=== PATIENT | female | born 1990 | race Caucasian/White ===

== ENCOUNTER 2018-07-25 12:18 | Emergency (ER) | payer OTHER ==
[2018-07-25 12:32] VITALS: BP 126/63
[2018-07-25] MEDS ORDERED: IBUPROFEN PO ONE (12:43)
[2018-07-25] MEDS ORDERED: MORPHINE IV ONE (12:43)
[2018-07-25] MEDS ORDERED: ZOFRAN IV ONE (12:43)
--- NOTE | 2018-07-25 12:47 | Emergency Department Report ---
ED Female HPI - General Chief complaint: Urogenital-Female Stated complaint: LEFT SIDE PAIN/FEVER Time Seen by Provider: 07/25/18 12:38 Source: patient Mode of arrival: Ambulatory Limitations: No Limitations - History of Present Illness Initial comments: Barb is a 27-year-old female who presents with left flank pain for one week. Positive fever positive chills, malaise. Positive bladder pain. MD Complaint: other (left flank pain, bladder pain) -: Gradual, week(s) (1) Severity: moderate Quality: cramping, burning Consistency: constant Improves with: none Worsens with: none Are you Now?: No - Related Data Home Medications Medication Instructions Recorded Confirmed Last Taken Pnv Plus Multivit Tab 1 tab PO DAILY 03/20/15 05/21/15 05/20/15 Previous Rx's Medication Instructions Recorded Last Taken Type Ibuprofen [Motrin 800 MG tab] 800 mg PO Q8HR PRN #30 tablet 05/22/15 Unknown Rx oxyCODONE /ACETAMINOPHEN [Percocet 2 tab PO Q4HR PRN #30 tablet 05/22/15 Unknown Rx 5/325] Acetaminophen [Tylenol Arthritis] 650 mg PO Q6HR PRN #30 tablet.er 02/11/18 Unknown Rx Doxylamine Succinate/Vit B6 1 each PO QHS PRN #30 tablet. 02/11/18 Unknown Rx [Shravan Shrestha 10-10 mg Tablet] Nitrofurantoin [place]/M-Cryst 100 mg PO Q12HR #14 capsule 02/11/18 Unknown Rx [Macrobid CAP] Vit Calc,Iron,Folic 1 each PO QDAY #30 tablet 02/11/18 Unknown Rx [ Vitamins] Cephalexin [Keflex] 500 mg PO QID 10 Days #40 capsule 07/25/18 Unknown Rx Promethazine [Phenergan TAB] 25 mg PO Q6HR PRN #15 tab 07/25/18 Unknown Rx Allergies Allergy/AdvReac Type Severity Reaction Status Date / Time No Known Allergies Allergy Verified 03/20/15 13:30 ED Review of Systems ROS: Stated complaint: LEFT SIDE PAIN/FEVER Other details as noted in HPI Constitutional: denies: chills, fever Eyes: denies: eye pain, eye discharge, vision change ENT: denies: ear pain, throat pain Respiratory: denies: cough, shortness of breath, wheezing Cardiovascular: denies: chest pain, palpitations Endocrine: no symptoms reported Gastrointestinal: nausea, vomiting. denies: abdominal pain, diarrhea Genitourinary: denies: urgency, dysuria, discharge Musculoskeletal: denies: back pain, joint swelling, arthralgia Skin: denies: rash, lesions Neurological: headache. denies: weakness, paresthesias Psychiatric: denies: anxiety, depression Hematological/Lymphatic: denies: easy bleeding, easy bruising ED Past Medical Hx - Past Medical History Previous Medical History?: No Hx Hypertension: No Hx Congestive Heart Failure: No Hx Diabetes: No Hx Deep Vein Thrombosis: No Hx Renal Disease: No Hx Sickle Cell Disease: No Hx Seizures: No Hx Asthma: No Hx COPD: No Hx HIV: No - Surgical History Past Surgical History?: Yes Additional Surgical History: - Social History Smoking Status: Never Smoker Substance Use Type: None - Medications Home Medications: Home Medications Medication Instructions Recorded Confirmed Last Taken Type Pnv Plus Multivit Tab 1 tab PO DAILY 03/20/15 05/21/15 05/20/15 History Ibuprofen [Motrin 800 MG tab] 800 mg PO Q8HR PRN #30 tablet 05/22/15 Unknown Rx oxyCODONE /ACETAMINOPHEN [Percocet 2 tab PO Q4HR PRN #30 tablet 05/22/15 Unknown Rx 5/325] Acetaminophen [Tylenol Arthritis] 650 mg PO Q6HR PRN #30 tablet.er 02/11/18 Unknown Rx Doxylamine Succinate/Vit B6 1 each PO QHS PRN #30 tablet. 02/11/18 Unknown Rx [Dicallyosn Shrestha 10-10 mg Tablet] Nitrofurantoin [place]/M-Cryst 100 mg PO Q12HR #14 capsule 02/11/18 Unknown Rx [Macrobid CAP] Vit Calc,Iron,Folic 1 each PO QDAY #30 tablet 02/11/18 Unknown Rx [ Vitamins] Cephalexin [Keflex] 500 mg PO QID 10 Days #40 capsule 07/25/18 Unknown Rx Promethazine [Phenergan TAB] 25 mg PO Q6HR PRN #15 tab 07/25/18 Unknown Rx ED Physical Exam - General Limitations: No Limitations General appearance: alert, in no apparent distress - Head Head exam: Present: atraumatic, normocephalic - Eye Eye exam: Present: normal appearance - ENT ENT exam: Present: mucous membranes moist - Neck Neck exam: Present: normal inspection, full ROM. Absent: tenderness, meningismus - Respiratory Respiratory exam: Present: normal lung sounds bilaterally. Absent: respiratory distress, wheezes, rales, rhonchi - Cardiovascular Cardiovascular Exam: Present: normal rhythm, tachycardia, normal heart sounds. Absent: systolic murmur, diastolic murmur, rubs, gallop - GI/Abdominal GI/Abdominal exam: Present: soft, normal bowel sounds. Absent: distended, tenderness, guarding, rebound - Extremities Exam Extremities exam: Present: normal inspection - Back Exam Back exam: Present: CVA tenderness (L). Absent: muscle spasm, paraspinal tenderness, vertebral tenderness - Neurological Exam Neurological exam: Present: alert, oriented X3 - Psychiatric Psychiatric exam: Present: normal affect, normal mood - Skin Skin exam: Present: warm, dry, intact, normal color. Absent: rash ED Course Vital Signs 07/25/18 12:30 Temperature 100.3 F H Pulse Rate 129 H Respiratory 20 Rate Blood Pressure 126/63 O2 Sat by Pulse 100 Oximetry ED Medical Decision Making - Medical Decision Making Acute pyelonephritis prescribed promethazine and cephalexin given first dose of ceftriaxone here in the ED Critical care attestation.: If time is entered above; I have spent that time in minutes in the direct care of this critically ill patient, excluding procedure time. ED Disposition Clinical Impression: Acute pyelonephritis Disposition: DC-01 TO HOME OR SELFCARE Is pt being admited?: No Does the pt Need Aspirin: No Condition: Stable Instructions: Acute Pyelonephritis (ED) Prescriptions: Cephalexin [Keflex] 500 mg PO QID 10 Days #40 capsule Promethazine [Phenergan TAB] 25 mg PO Q6HR PRN #15 tab PRN Reason: Nausea Print Language: POLISH
[2018-07-25] MEDS ORDERED: ROCEPHIN/NS 2 GM/100 ML 2 GM/100 ML BAG IV ONE (13:00)
[2018-07-25 13:51] LABS: Bilirubin,Urine NEG (Negative); Blood,Urine MOD (Negative); Color,Urine Yellow (Yellow); Mucus,Urine 1+ /HPF; Urobilinogen,Urine < 2.0 mg/dL (<2.0)
[2018-07-25 13:56] LABS: WBC,Urine > 182.0 /HPF (0.0-6.0)
[2018-07-25 13:57] LABS: HCG Qualitative,Urine Negative (Negative)
== END 2018-07-25 14:18 | disposition home or self-care (01) ==
LOC: ED 12:18
DX: N10 Acute pyelonephritis (principal); Z79.899 Other long term (current) drug therapy
CPT/HCPCS: 81001; 81025; 96365; 96375; 99283; J0696; J2270; J2405

== ENCOUNTER 2018-11-19 20:46 | Emergency (ER) | payer SELFPAY ==
[2018-11-19] MEDS ORDERED: NACL 0.9% 1000 ML 2,000 ML IV ONE (21:22)
[2018-11-19] MEDS ORDERED: NACL 0.9% 1000 ML 1,000 ML IV ONE ×3 (21:22→23:57)
[2018-11-19] MEDS ORDERED: TYLENOL PO STA (21:23)
[2018-11-19 21:58] LABS: BUN/Creatinine Ratio 22; Blood Urea Nitrogen 11 mg/dL (7-17); Calcium 9.3 mg/dL (8.4-10.2); Hemolysis Index 1
[2018-11-19] MEDS ORDERED: TORADOL IV ONE (22:16)
--- NOTE | 2018-11-19 22:17 | Emergency Department Report ---
ED General Adult HPI - General Chief complaint: Fever Stated complaint: FEVER, BODY PAIN, THROAT PAIN Time Seen by Provider: 11/19/18 21:27 Source: patient, RN notes reviewed Mode of arrival: Ambulatory Limitations: No Limitations - History of Present Illness Initial comments: This is a pleasant 28-year-old female. The patient is not known to this prov ider previously. The patient presents to the ER with a complaint of one day sublingual and submental pain and swelling, fever, chills, myalgias, malaise and fatigue. She denies throat pain. Symptoms intermittent over the past 24 hours, and decrease in the emergency room with fluids and supportive care. The patient denies severe headache, posterior neck pain, ocular pain, nasal discharge, chest pain, abdominal pain, shortness of breath, urinary symptoms. Positive myalgias and chills. -: Gradual, days(s) (1) Location: neck Radiation: non-radiation Severity scale (0 -10): 9 Quality: aching Consistency: other Improves with: other Worsens with: other - Related Data Home Medications Medication Instructions Recorded Confirmed Last Taken Pnv Plus Multivit Tab 1 tab PO DAILY 03/20/15 05/21/15 05/20/15 Previous Rx's Medication Instructions Recorded Last Taken Type Ibuprofen [Motrin 800 MG tab] 800 mg PO Q8HR PRN #30 tablet 05/22/15 Unknown Rx oxyCODONE /ACETAMINOPHEN [Percocet 2 tab PO Q4HR PRN #30 tablet 05/22/15 Unknown Rx 5/325] Acetaminophen [Tylenol Arthritis] 650 mg PO Q6HR PRN #30 tablet.er 02/11/18 Unknown Rx Doxylamine Succinate/Vit B6 1 each PO QHS PRN #30 tablet. 02/11/18 Unknown Rx [Shravan Shrestha 10-10 mg Tablet] Nitrofurantoin [place]/M-Cryst 100 mg PO Q12HR #14 capsule 02/11/18 Unknown Rx [Macrobid CAP] Vit Calc,Iron,Folic 1 each PO QDAY #30 tablet 02/11/18 Unknown Rx [ Vitamins] Cephalexin [Keflex] 500 mg PO QID 10 Days #40 capsule 07/25/18 Unknown Rx Promethazine [Phenergan] 25 mg PO Q6HR PRN #15 tab 07/25/18 Unknown Rx Acetaminophen [Non-Aspirin Extra 500 mg PO BID #20 tablet 11/19/18 Unknown Rx Strength] Ibuprofen [Motrin] 600 mg PO Q8H PRN #30 tablet 11/19/18 Unknown Rx Ondansetron [Zofran Odt] 4 mg PO Q8HR PRN #20 tab.rapdis 11/19/18 Unknown Rx Amoxicillin [Trimox CAP] 500 mg PO BID #20 capsule 11/20/18 Unknown Rx Allergies Allergy/AdvReac Type Severity Reaction Status Date / Time No Known Allergies Allergy Verified 03/20/15 13:30 ED Review of Systems ROS: Stated complaint: FEVER, BODY PAIN, THROAT PAIN Other details as noted in HPI Constitutional: chills, fever, malaise, weakness Eyes: denies: eye discharge ENT: throat pain, other (neck pain). denies: dental pain, hearing loss, epistaxis, congestion Respiratory: denies: wheezing Cardiovascular: denies: syncope Gastrointestinal: denies: nausea, vomiting Genitourinary: denies: urgency Musculoskeletal: arthralgia, myalgia Skin: denies: lesions Neurological: weakness ED Past Medical Hx - Past Medical History Hx Hypertension: No Hx Congestive Heart Failure: No Hx Diabetes: No Hx Deep Vein Thrombosis: No Hx Renal Disease: No Hx Sickle Cell Disease: No Hx Seizures: No Hx Asthma: No Hx COPD: No Hx HIV: No - Surgical History Additional Surgical History: - Social History Smoking Status: Never Smoker - Medications Home Medications: Home Medications Medication Instructions Recorded Confirmed Last Taken Type Pnv Plus Multivit Tab 1 tab PO DAILY 03/20/15 05/21/15 05/20/15 History Ibuprofen [Motrin 800 MG tab] 800 mg PO Q8HR PRN #30 tablet 05/22/15 Unknown Rx oxyCODONE /ACETAMINOPHEN [Percocet 2 tab PO Q4HR PRN #30 tablet 05/22/15 Unknown Rx 5/325] Acetaminophen [Tylenol Arthritis] 650 mg PO Q6HR PRN #30 tablet.er 02/11/18 Unknown Rx Doxylamine Succinate/Vit B6 1 each PO QHS PRN #30 tablet. 02/11/18 Unknown Rx [Diclegilucia Shrestha 10-10 mg Tablet] Nitrofurantoin [place]/M-Cryst 100 mg PO Q12HR #14 capsule 02/11/18 Unknown Rx [Macrobid CAP] Vit Calc,Iron,Folic 1 each PO QDAY #30 tablet 02/11/18 Unknown Rx [ Vitamins] Cephalexin [Keflex] 500 mg PO QID 10 Days #40 capsule 07/25/18 Unknown Rx Promethazine [Phenergan] 25 mg PO Q6HR PRN #15 tab 07/25/18 Unknown Rx Acetaminophen [Non-Aspirin Extra 500 mg PO BID #20 tablet 11/19/18 Unknown Rx Strength] Ibuprofen [Motrin] 600 mg PO Q8H PRN #30 tablet 11/19/18 Unknown Rx Ondansetron [Zofran Odt] 4 mg PO Q8HR PRN #20 tab.rapdis 11/19/18 Unknown Rx Amoxicillin [Trimox CAP] 500 mg PO BID #20 capsule 11/20/18 Unknown Rx ED Physical Exam - General Limitations: No Limitations General appearance: alert, anxious - Head Head exam: Present: atraumatic, normocephalic - Eye Eye exam: Present: normal appearance, EOMI. Absent: nystagmus - ENT ENT exam: Present: normal orophraynx (erythematous oropharynx. No pus or streaking. No discharge. No elevation of the base of the tongue.), mucous membranes moist, TM's normal bilaterally, normal external ear exam - Neck Neck exam: Present: normal inspection, full ROM, lymphadenopathy, other (there is submental and submandibular adenopathy and swelling. There is submental induration. There is no redness, pus or streaking). Absent: tenderness, meningismus - Respiratory Respiratory exam: Present: normal lung sounds bilaterally. Absent: respiratory distress, wheezes, rales, rhonchi, stridor, chest wall tenderness - Cardiovascular Cardiovascular Exam: Present: normal rhythm, tachycardia, normal heart sounds. Absent: systolic murmur, diastolic murmur, rubs, gallop - GI/Abdominal GI/Abdominal exam: Present: soft. Absent: distended, tenderness, guarding, rebound, rigid, pulsatile mass - Extremities Exam Extremities exam: Present: normal inspection, full ROM, other (2+ pulses noted in the bilateral upper, lower extremities. There is no long bony tenderness. The pelvis is stable. Muscular compartments are soft.). Absent: pedal edema, joint swelling, calf tenderness - Back Exam Back exam: Present: normal inspection, full ROM. Absent: tenderness, CVA tenderness (R), CVA tenderness (L), paraspinal tenderness, vertebral tenderness - Neurological Exam Neurological exam: Present: alert, normal gait, other (there is no facial droop. The tongue is midline. The extraocular movements are intact bilaterally. 5/ 5 strength bilateral upper, lower extremities. Sensation intact to light touch bilateral upper, lower extremities bilaterally. Sensation is intact to light touch in the bilateral V1, V2, V3 distribution.). Absent: motor sensory deficit - Psychiatric Psychiatric exam: Present: anxious - Skin Skin exam: Present: warm, dry, intact, normal color. Absent: rash ED Course Vital Signs 11/19/18 11/19/18 11/19/18 21:15 21:25 21:31 Temperature 103.0 F H Pulse Rate 146 H 116 H 120 H Respiratory 18 16 15 Rate Blood Pressure 94/71 110/71 Blood Pressure 110/71 [Left] O2 Sat by Pulse 98 99 100 Oximetry 11/19/18 11/19/18 11/19/18 22:15 23:25 23:31 Temperature Pulse Rate 115 H 111 H 118 H Respiratory 20 19 15 Rate Blood Pressure 104/66 93/64 94/64 Blood Pressure [Left] O2 Sat by Pulse 99 Oximetry 11/19/18 11/20/18 11/20/18 23:56 00:00 00:45 Temperature 99 F Pulse Rate 111 H 106 H Respiratory 16 14 Rate Blood Pressure 105/64 97/61 Blood Pressure [Left] O2 Sat by Pulse 98 100 Oximetry 11/20/18 01:31 Temperature Pulse Rate 107 H Respiratory 20 Rate Blood Pressure 97/61 Blood Pressure [Left] O2 Sat by Pulse 99 Oximetry - Reevaluation(s) Reevaluation #1: 11/19/18 23:55 Differential diagnosis, including not limited to: Submental abscess, submandibular abscess, sublingual abscess, tonsillitis, reactive lymphadenopathy Assessment and plan: 28-year-old female with a primary complaint of submental and sublingual pain and swelling, fever, tachycardia, initially hypotensive, pharyngeal exam somewhat unimpressive. The patient is febrile, tachycardic, and is protecting her airway. She is to with IV fluids, and appropriate antipyretic therapy. Patient able to tolerate liquid feeds, CT scan of the neck is obtained, and shows tonsillitis with presumed reactive adenopathy. Pat ient's vital signs have normalized, she is walking around the ER, does not appear to be in any acute distress, and the patient is therefore stable to be discharged with a trial of oral outpatient antibiotics, pain medication, nausea medication as needed. Reevaluation #2: 11/20/18 00:54 Patient feels improved. Tolerating liquid feeds, tachycardia markedly improved, patient walking around the ER, and in no acute distress. CT scan suggests tonsillitis with lymphadenopathy. We will treat the patient empirically. We will discharge the patient at this time, with instructions to follow up. Return precautions are reviewed. The patient has endorsed understanding. ED Medical Decision Making - Lab Data Result diagrams: 11/19/18 21:25 Vital Signs 11/19/18 11/19/18 11/19/18 21:15 21:25 21:31 Temperature 103.0 F H Pulse Rate 146 H 116 H 120 H Respiratory 18 16 15 Rate Blood Pressure 94/71 110/71 Blood Pressure 110/71 [Left] O2 Sat by Pulse 98 99 100 Oximetry 11/19/18 11/19/18 11/19/18 22:15 23:25 23:31 Temperature Pulse Rate 115 H 111 H 118 H Respiratory 20 19 15 Rate Blood Pressure 104/66 93/64 94/64 Blood Pressure [Left] O2 Sat by Pulse 99 Oximetry 11/19/18 23:56 Temperature 99 F Pulse Rate Respiratory Rate Blood Pressure Blood Pressure [Left] O2 Sat by Pulse Oximetry Lab Results 11/19/18 11/19/18 Range/Units 21:25 21:25 Sodium 138 (137-145) mmol/L Potassium 3.4 L (3.6-5.0) mmol/L Chloride 101.7 (98-107) mmol/L Carbon Dioxide 25 (22-30) mmol/L Anion Gap 15 mmol/L BUN 11 (7-17) mg/dL Creatinine 0.5 L (0.7-1.2) mg/dL Estimated GFR > 60 ml/min BUN/Creatinine Ratio 22 % Glucose 107 H (65-100) mg/dL Calcium 9.3 (8.4-10.2) mg/dL Magnesium 1.70 (1.7-2.3) mg/dL Total Creatine Kinase 398 H (30-135) units/L HCG, Quant < 2 (0-4) mIU/mL - Radiology Data Radiology results: report reviewed, image reviewed [facility] [address] [place] [address] Cat Scan Report Signed Patient: AGNIESZKA CALVO MR#: [id number] : 1990 Acct:[id number] Age/Sex: 28 / F ADM Date: 11/19/18 Loc: ED Attending Dr: Ordering Physician: LIZETH ROBLERO MD Date of Service: 11/19/18 Procedure(s): CT neck w con Accession Number(s): [id number] cc: LIZETH ROBLERO MD CT NECK WITH CONTRAST HISTORY: Neck pain; fever; swelling in the sublingual and submental spaces COMPARISON: None. TECHNIQUE: Routine CT of the neck is performed following intravenous contrast. Sagittal and coronal reformatted images were obtained. I do not have previous imaging studies for comparison. All CT scans at this location are performed using CT dose reduction for ALARA by means of automated exposure control. CONTRAST: 100 mL Omnipaque 350 FINDINGS: Skull Base: No significant abnormality. Parotid, Carotid, Retropharyngeal and Electrical Repairer Spaces: No abnormal mass, enhancing lesion or other significant abnormality. Prevertebral space: There may be soft tissue swelling in the prevertebral space. Pharyngeal mucosal space: Partial tonsils are not enlarged more on the left side. Striated appearance of the left tonsil is seen (diagnosed stripe appears) suggesting nonsuppurative tonsillitis. Adjacent reactive lymph nodes are seen. Airway: Patent and without significant abnormality. Lymphatics: Active lymph nodes are seen at level 1, level 2, level 3. Vasculature: No significant abnormality. Osseous Structures: No significant abnormality Additional findings: None. IMPRESSION: CT findings consistent with nonsuppurative tonsillitis with reactive lymph nodes Signer Name: Matt Ivan MD Signed: 11/19/2018 11:42 PM Workstation Name: [id number] Transcribed By: BS Dictated By: Matt Lewis MD Electronically Authenticated By: Matt Lewis MD Signed Date/Time: 11/19/18 2782 Critical care attestation.: If time is entered above; I have spent that time in minutes in the direct care of this critically ill patient, excluding procedure time. ED Disposition Clinical Impression: Lymphadenopathy, Tonsillitis Disposition: DC- TO HOME OR SELFCARE Is pt being admited?: No Does the pt Need Aspirin: No Condition: Stable Instructions: Lymphadenopathy (ED), Tonsillitis (ED) Additional Instructions: Advance diet as tolerated, drink plenty of fluids, take the pain medication as needed, nausea medication as needed, antibiotic therapy as directed. Follow up with the primary care doctor or otolaryngology specialist for repeat exam/evaluation in 5-7 days. Alternatively, patient may return to this emergency room for repeat evaluation. Patient may expect to have symptoms of body aches, fevers, chills over the next few days, this is normal and expected. Return to the emergency room right away with projectile vomiting, change in mental status, confusion, inability to tolerate liquid feeds, new, worsening or different symptoms not present on the initial emergency room evaluation. Avance la dieta segn lo tolere, tome muchos lquidos, tome los analgsicos segn sea necesario, los medicamentos para las nuseas segn sea necesario, la terapia con antibiticos segn las indicaciones. [place] un seguimiento con el mdico de atencin primaria o el especialista en otorrinolaringologa para repetir el examen / evaluacin en 5-7 ledesma. Alternativamente, el paciente puede regresar a esta bladimir de emergencias para repetir la evaluacin. El paciente puede esperar tener sntomas de dayday corporales, fiebre, escalofros en los prximos ledesma, esto es normal y esperado. Regrese a la bladimir de emergencias de inmediato con vmitos de proyectil, cambios en el estado mental, confusin, incapacidad para tolerar la alimentacin lquida, sntomas nuevos, que empeoran o diferentes que no estn presentes en la evaluacin inicial de la bladimir de emergencias. Prescriptions: Ibuprofen [Motrin] 600 mg PO Q8H PRN #30 tablet PRN Reason: Pain Acetaminophen [Non-Aspirin Extra Strength] 500 mg PO BID #20 tablet Amoxicillin [Trimox CAP] 500 mg PO BID #20 capsule Ondansetron [Zofran Odt] 4 mg PO Q8HR PRN #20 tab.rapdis PRN Reason: Nausea Referrals: ERICKSON RIVERA MD [Primary Care Provider] - 3-5 Days ELPIDIO ROCHA MD [Staff Physician] - 3-5 Days [facility] [Provider Group] - 3-5 Days Print Language: KAZAKH
[2018-11-19] MEDS: KCL 10MEQ/100ML 10 MEQ/100 ML BAG IV SCH (23:41)
--- NOTE | 2018-11-19 23:47 | Cat Scan Report ---
CT NECK WITH CONTRAST HISTORY: Neck pain; fever; swelling in the sublingual and submental spaces COMPARISON: None. TECHNIQUE: Routine CT of the neck is performed following intravenous contrast. Sagittal and coronal r eformatted images were obtained. I do not have previous imaging studies for comparison. All CT scans at this location are performed using CT dose reduction for ALARA by means of automated exposure contr ol. CONTRAST: 100 mL Omnipaque 350 FINDINGS: Skull Base: No significant abnormality. Parotid, Carotid, Retropharyngeal and Laboratory Phlebotomist Spaces: No abnormal mass, enhancing lesion or other significant abnormality. Prevertebral space: There may be soft tissue swelling in the prevertebral sp ashley. Pharyngeal mucosal space: Partial tonsils are not enlarged more on the left side. Striated appearance of the left tonsil is seen (diagnosed stripe appears) suggesting nonsuppurative tonsillitis. Adjacen t reactive lymph nodes are seen. Airway: Patent and without significant abnormality. Lymphatics: Active lymph nodes are seen at level 1, level 2, level 3. Vasculature: No significant abnormality. Osseous Structures: No significant abnormality Additional findings: None. IMPRESSION: CT findings consistent with nonsuppurative tonsillitis with reactive lymph nodes Signer Name: Matt Ivan MD Signed: 11/19/2018 11:42 PM Workstation Name: [id number]
[2018-11-19] MEDS ORDERED: DECADRON IV ONE (23:53)
[2018-11-20] MEDS ORDERED: K-DUR PO ONE (00:33)
[2018-11-20 00:53] VITALS: BP 97/61
[2018-11-20] MEDS: KCL 10MEQ/100ML 10 MEQ/100 ML BAG IV SCH (01:10)
== END 2018-11-20 01:44 | disposition home or self-care (01) ==
LOC: ED 20:46
DX: J03.90 Acute tonsillitis, unspecified (principal); R59.1 Generalized enlarged lymph nodes
CPT/HCPCS: 36415; 70491; 80048; 82550; 83735; 84702; 96374; 96375; 99284; J1100; J1885; J3480; J7030; Q9967